=== PATIENT | male | born 1995 | race Caucasian/White ===

== ENCOUNTER 2016-10-12 02:27 | Emergency (ER) | payer MEDICAID ==
[~2016-10-12] VITALS: Ht 170.2 cm; Wt 77.0 kg
[2016-10-12] MEDS ORDERED: BACITRACIN ZINC OINT UDPKT TOP ONE (02:45)
[2016-10-12] MEDS ORDERED: TETANUS, DIPHTHERIA, PERTUSSIS VAC/PF 0.5ML (>7YR OLD) IM ONE (02:45)
[2016-10-12] MEDS ORDERED: LIDOCAINE HCL/EPINEPHRINE 1%-EPI 1:100,000 20 ML VIAL INFIL ONE (02:45)
[2016-10-12] MEDS ORDERED: SODIUM CHLORIDE 0.9% 1,000 ML IV ONE (02:45)
[2016-10-12 03:41] LABS: HEMATOCRIT. 40.8 % (42.0-52.0); HEMOGLOBIN. 13.9 g/dL (14.0-18.0); MEAN CORPUSCULAR HEMOGLOBIN 30.5 pg (28.0-32.0); MEAN CORPUSCULAR VOLUME 89.4 fL (80.0-94.0); MEAN PLATELET VOLUME 7.2 fl (7.4-10.4); PLATELET 246 x1000/uL (130-400); RED BLOOD CELL COUNT 4.56 mill/uL (4.7-6.1)
[2016-10-12 03:51] LABS: PROTHROMBIN TIME 10.7 sec
[2016-10-12 03:54] LABS: AMMONIA 35 uMol/L (<32)
[2016-10-12 03:56] LABS: CARBON DIOXIDE 25 mEq/L (21-32); CHLORIDE 106 mEq/L (98-107); CREATINE KINASE 250 IU/L (39-308); ETHANOL BLOOD < 10 mg/dL
[2016-10-12] MEDS ORDERED: CLINDAMYCIN 900 MG in DEXTROSE 5% WATER 50 ML IV ONE (04:15)
[2016-10-12] MEDS ORDERED: LIDOCAINE HCL 1%/EPI 1:200,000 30 ML VIAL MC ONE (04:15)
[2016-10-12 05:23] LABS: PLATELET ESTIMATE NORMAL
[2016-10-12] MEDS: LACTULOSE 20G/30ML UDC PO NR ×2 (05:47→06:28)
[2016-10-12 07:08] VITALS: BP 100/60
== END 2016-10-12 07:58 | disposition home or self-care (01) ==
LOC: ER 02:37
DX: S01.511A Laceration without foreign body of lip, initial encounter (principal); S01.81XA Laceration without foreign body of other part of head, initial encounter; Y08.89XA Assault by other specified means, initial encounter; Y93.89 Activity, other specified; Y92.89 Other specified places as the place of occurrence of the external cause; Y99.8 Other external cause status
CPT/HCPCS: 12011; 36415; 70450; 70486; 71010; 72125; 80053; 80307; 80329; 82140; 82550; 85025; 85610; 90471; 90715; 96361; 96374; 99285; G0482; J3490; J7030; X7700; Z7610; J7060